=== PATIENT | male | born 1985 | race Caucasian/White ===

== ENCOUNTER 2024-03-11 20:13 | Observation (INO) | payer SELFPAY ==
[2024-03-11] VITALS (32 sets, daily range): BP systolic 123–172; BP diastolic 60–100; PULSE 96–114; RESP 12–21; TEMP 36.6; O2SAT 94–98
[2024-03-11] MEDS: Pantoprazole 40 MG VIAL IVP (20:47)
[2024-03-11 20:50] LABS: Abs Immature Grans 0.03 10^3/uL (0.0-0.06); Absolute Basophil Count 0.05 10^3/uL (0.0-0.2); Absolute Eosinophil Count 0.07 10^3/uL (0.0-0.7); Absolute Lymphocyte Count 1.96 10^3/uL (1.2-3.4); Absolute Monocyte Count 0.82 10^3/uL (0.1-0.8); Absolute Neutrophil Count 5.33 10^3/uL (1.2-6.7); Basophils % 0.6 %; Eosinophils % 0.8 %; HCT 46.4 % (40.0-50.0); HGB 15.8 g/dL (13.5-17.5); Immature Grans % 0.4 %; Lymphocytes % 23.7 %; MCH 33.3 pg (27.0-33.0); MCHC 34.1 % (32.0-36.0); MCV 98 fL (80-95); MPV 8.7 fL (8.0-11.0); Monocytes % 9.9 %; Neutrophils % 64.6 %; Platelet Count 290 10^3/uL (130-400); RBC 4.75 10^6/uL (4.36-5.78); RDW 11.2 % (11.8-14.1); WBC 8.26 10^3/uL (4.4-10.8)
[2024-03-11 21:07] LABS: Lipase 52 U/L (<78)
[2024-03-11 21:10] LABS: ALT 60 U/L (16-63); AST 58 U/L (15-37); Alkaline Phosphatase 88 U/L (46-116); Anion Gap 9.6 mmol/L (3-11); BUN 28 mg/dL (7-18); Bilirubin, Total 0.83 mg/dL (0.2-1.0); CO2 28.4 mmol/L (21.0-32.0); CREATININE 0.8 mg/dL (0.70-1.30); Calcium 8.8 mg/dL (8.5-10.1); Chloride 102 mmol/L (98-107); Glucose 89 mg/dL (74-106); Magnesium 1.8 mg/dL (1.8-2.4); Potassium 3.9 mmol/L (3.5-5.1); Sodium 140 mmol/L (136-145); Total Protein 7.5 g/dL (6.4-8.2)
--- NOTE | 2024-03-11 21:30 | DI.CT_ITS ---
Exam(s) CT ABDOMEN PELVIS CTA EXAM: CT ABDOMEN PELVIS CTA CLINICAL HISTORY: vomiting BRB and tarry stools. TECHNIQUE: Imaging Protocol: Axial computed tomography images with coronal and sagittal reformatted images were created and reviewed CONTRAST MATERIAL: Intravenous: Omnipaque 350 Contrast volume:100 ml Oral: None COMPARISON: No exams were available for comparison FINDINGS: ABDOMEN: There is no evidence of abdominal aortic aneurysm nor dissection.There is no aneurysmal dilatation of the common iliac arteries.The celiac and superior mesenteric arteries are patent.Inferior mesenteric artery also patent. Renal arteries appear unremarkable. No significant stenosis. There is no intraluminal extravasation of injected IV contrast to suggest area of acute hemorrhage. Also no intraluminal contrast evident on the delayed sequence. There is no ascites. LIVER: There is a subcapsular hemangioma in the right lobe which measures approximately 1.7 x 1.8 cm. No other significant focal hepatic findings. GALLBLADDER/BILIARY: No obvious gallbladder pathology. CBD is not dilated. PANCREAS: No evidence of pancreatic mass nor dilatation of the pancreatic duct. SPLEEN: Spleen is not enlarged. There are no intrasplenic lesions. Splenic and portal veins are lee nt. ADRENALS: There are no significant adrenal masses. KIDNEYS: No cysts evident. There is a solitary punctate 1-2 mm calculus in the midpole region of the left kidney, nonobstructive. No other renal findings.. ABDOMINAL AORTA: The abdominal aorta is not enlarged. LYMPH NODES: There is no retroperitoneal nor para-aortic adenopathy. No obvious mesenteric masses. ABDOMINAL WALL: No evidence of significant anterior abdominal wall hernia. GI: There is a possible subtle pancolitis pattern. Difficult to assess without enteric contrast with in the lumen of the large bowel. PELVIS: LYMPH NODES: There is no intrapelvic nor inguinal adenopathy. GI: No evidence of appendicitis.No evidence of sigmoid diverticulitis. URINARY BLADDER: There is mild diffuse thickening of the urinary bladder wall. May be related to cys titis versus under distension. REPRODUCTIVE: Prostate size upper normal. Contains calcification. OSSEOUS: No significant osseous lesions. IMPRESSION: 1. No evidence of active intraluminal extravasation of contrast to suggest source of acute GI bleed 2. Subtle evidence of johns colitis. This may be exaggerated by lack of enteric contrast in the colon lumen. However, given the history here colonoscopy is recommended 3. There is a 1.7 cm subcapsular benign hemangioma in the right hepatic lobe. 4. There is a tiny solitary nonobstructive calculus in the midpole level of the left kidney RADIATION DOSE DELIVERED: 1,138.88mGy.cm Total DLP DATA REPOSITORY: All CT scans at this facility are submitted to the National Radiology Data Registry (NRDR) Dose Index Registry (DIR) with the [employer] (ACR). RADIATION OPTIMIZATION: All CT scans at this facility use at least one of these dose optimization te chniques: automated exposure control; mA and/or kV adjustment per patient size (includes targeted exa ms where dose is matched to clinical indication); or iterative reconstruction.
[2024-03-11] MEDS: Normal Saline - Diluent 50 ML VIAL IJ (21:51)
[2024-03-11] MEDS: Omnipaque 350 MG/ML 100 ML BTL IJ (21:52)
[2024-03-11] MEDS: Normal Saline Flush 10 ML SYR IVP (21:53)
[2024-03-11 22:24] LABS: Abs Immature Grans 0.03 10^3/uL (0.0-0.06); Absolute Basophil Count 0.04 10^3/uL (0.0-0.2); Absolute Eosinophil Count 0.06 10^3/uL (0.0-0.7); Absolute Lymphocyte Count 1.69 10^3/uL (1.2-3.4); Absolute Monocyte Count 0.73 10^3/uL (0.1-0.8); Absolute Neutrophil Count 4.93 10^3/uL (1.2-6.7); Basophils % 0.5 %; Eosinophils % 0.8 %; HCT 41.8 % (40.0-50.0); HGB 14.2 g/dL (13.5-17.5); Immature Grans % 0.4 %; Lymphocytes % 22.6 %; MCH 33.3 pg (27.0-33.0); MCV 98 fL (80-95); MPV 8.5 fL (8.0-11.0); Monocytes % 9.8 %; Neutrophils % 65.9 %; Platelet Count 245 10^3/uL (130-400); RBC 4.27 10^6/uL (4.36-5.78); RDW 11.4 % (11.8-14.1); RDW-SD 41.1 fL; WBC 7.48 10^3/uL (4.4-10.8)
[2024-03-11 22:29] LABS: Prothrombin Time 9.9 sec (9.1-11.1)
--- NOTE | 2024-03-11 23:25 | DI.VRAD_ITS ---
PROCEDURE INFORMATION: Exam: CTA Abdomen and Pelvis With Contrast Exam date and time: 03/11/2024 9:56 PM Age: 39 years old Clinical indication: Other: Vomiting brb and tarry stools TECHNIQUE: Imaging protocol: Computed tomographic angiography of the abdomen and pelvis with contrast. Exam focused on the arteries. 3D rendering (Not supervised by radiologist): MIP and/or 3D reconstructed images were created by the technologist. Contrast material: OMNI 350; Contrast volume: 100 ml; Contrast route: INTRAVENOUS (IV); COMPARISON: No relevant prior studies available. FINDINGS: Diaphragm: There is a small hiatal hernia. Aorta: No aortic aneurysm. No aortic dissection. Celiac trunk and mesenteric arteries: No occlusion or significant stenosis. Renal arteries: No occlusion or significant stenosis. Right iliac arteries: No occlusion or significant stenosis. Left iliac arteries: No occlusion or significant stenosis. Liver: There is a rounded hypoattenuating lesion within the right hepatic lobe measuring 1.3 cm. There is evidence of peripheral, discontinuous nodular enhancement, suggestive of a benign hemangioma. Gallbladder and biliary ducts: Unremarkable. No calcified stones. No ductal dilation. Pancreas: Unremarkable. No mass. No ductal dilation. Spleen: Unremarkable. No splenomegaly. Adrenal glands: Unremarkable. No mass. Kidneys and ureters: Nonobstructive nephrolithiasis on the left. Stomach and bowel: There is evidence of bowel wall thickening involving the ascending colon, distal transverse colon, descending colon, sigmoid colon and rectum. Findings are concerning for colitis/proctitis. Appendix: No evidence of appendicitis. Intraperitoneal space: Unremarkable. No free air. No significant fluid collection. Lymph nodes: Unremarkable. No enlarged lymph nodes. Urinary bladder: Unremarkable. No mass. Reproductive: Prostatic calcifications. Bones/joints: No acute fracture. Soft tissues: Unremarkable. IMPRESSION: 1. No active extravasation of contrast is identified to suggest source of GI bleed. 2. There is evidence of bowel wall thickening involving the ascending colon, distal transverse colon, descending colon, sigmoid colon and rectum. Findings are concerning for colitis/proctitis. 3. There is a rounded hypoattenuating lesion within the right hepatic lobe measuring 1.3 cm. There is evidence of peripheral, discontinuous nodular enhancement, suggestive of a benign hemangioma. 4. Nonobstructive nephrolithiasis on the left. Dictated and Authenticated by: Kai Sharma MD. Ordering:YONY Desai MD
--- NOTE | 2024-03-11 23:53 | W.ED.GENAD ---
Discharge Plan Disposition Patient Disposition: Admit to [facility] Condition: Serious Discharge Details Clinical Impression: Acute GI bleeding Primary Care Provider: None,None ED Provider: Giselle Menchaca Home Meds and New Rx's Prescriptions: No Action No Known Home Meds HPI General Date/Time Provider Initiated Documentation: 03/11/24 20:15. HPI Narrative: This 39-year-old male presents with report of vomiting bright red blood spontaneously after having some nausea. Denies any chest pain or shortness of breath. History of alcoholism, drinks approximately 12 drinks a day. Denies any history of alcohol withdrawal and did not have any drinks last week as he was ill and did not have alcohol withdrawal. He was concerned because after the vomiting blood he had 2 episodes of tarry stools. He denies any associated discomfort. He specifically denies any epigastric pain. Denies any fever or chills. He denies any chest pain or shortness of breath. He denies any additional illicit drug use does not have a doctor. Denies any current nausea last drink was earlier today. Related Data Home Medications ?Medication ?Instructions ?Recorded ?Confirmed Unknown [No Known Home Meds] 03/11/24 03/11/24 Allergies Allergy/AdvReac Type Severity Reaction Status Date / Time No Known Allergies Allergy Unverified 03/11/24 20:19 General Stated Complaint: GI Bleed DIANE: 3 Exam Narrative Exam Narrative: Alert and oriented 39-year-old male in no acute distress and clinically sober, oropharynx patent, uvula midline, no visible blood, pupils equal round reactive to light and accommodation, nontender abdominal exam, no pallor, alert and oriented x 4, no peripheral edema, dark stool, guaiac positive Course Vital Signs Vital signs: Vital Signs Temperature 36.6 C 03/11/24 20:15 Pulse 109 H 03/11/24 20:15 Respiratory Rate 18 03/11/24 20:15 Blood Pressure 155/100 H 03/11/24 20:15 Pulse Oximetry 98 03/11/24 20:15 Temperature 36.6 C 03/11/24 20:15 Temperature Source Oral 03/11/24 20:15 Pulse 98 H 03/11/24 22:12 Pulse 100 H 03/11/24 22:50 Respiratory Rate 13 03/11/24 22:50 Blood Pressure 126/60 03/11/24 21:47 Blood Pressure Mean 74 03/11/24 22:12 Blood Pressure Position Sitting 03/11/24 20:15 Pulse Oximetry 98 03/11/24 22:50 Oxygen Delivery Method Room Air 03/11/24 20:15 Oxygen Flow Rate 0 03/11/24 20:15 Pain Level 0 03/11/24 20:15 Lab/Test Results Lab/Test Results: Laboratory Tests Range/Units 03/11/24 03/11/24 20:28 22:15 WBC (4.4-10.8) 10^3/uL 8.26 7.48 RBC (4.36-5.78) 10^6/uL 4.75 4.27 L Hgb (13.5-17.5) g/dL 15.8 14.2 Hct (40.0-50.0) % 46.4 41.8 MCV (80-95) fL 98 H 98 H MCH (27.0-33.0) pg 33.3 H 33.3 H MCHC (32.0-36.0) % 34.1 34.0 RDW (11.8-14.1) % 11.2 L 11.4 L Plt Count (130-400) 10^3/uL 290 245 MPV (8.0-11.0) fL 8.7 8.5 Immature Gran % % 0.4 0.4 Neutrophils % % 64.6 65.9 Lymphocytes % % 23.7 22.6 Monocytes % % 9.9 9.8 Eosinophils % % 0.8 0.8 Basophils % % 0.6 0.5 Nucleated RBC % (0.0-0.3) % 0.0 0.0 Absolute Neutrophils (1.2-6.7) 10^3/uL 5.33 4.93 Absolute Lymphocytes (1.2-3.4) 10^3/uL 1.96 1.69 Absolute Monocytes (0.1-0.8) 10^3/uL 0.82 H 0.73 Absolute Eosinophils (0.0-0.7) 10^3/uL 0.07 0.06 Absolute Basophils (0.0-0.2) 10^3/uL 0.05 0.04 PT (9.1-11.1) sec 9.9 INR (0.9-1.1) 1.0 Sodium (136-145) mmol/L 140 Potassium (3.5-5.1) mmol/L 3.9 Chloride (98-107) mmol/L 102 Carbon Dioxide (21.0-32.0) mmol/L 28.4 Anion Gap (3-11) mmol/L 9.6 BUN (7-18) mg/dL 28 H Creatinine (0.70-1.30) mg/dL 0.8 Est GFR (CKD-EPI 2020) (mL/min/1.73m2) 116.90 Glucose (74-106) mg/dL 89 Calcium (8.5-10.1) mg/dL 8.8 Magnesium (1.8-2.4) mg/dL 1.8 Total Bilirubin (0.2-1.0) mg/dL 0.83 AST (15-37) U/L 58 H ALT (16-63) U/L 60 Alkaline Phosphatase (46-116) U/L 88 Total Protein (6.4-8.2) g/dL 7.5 Albumin (3.4-5.0) g/dL 4.0 Lipase (<78) U/L 52 ABO/Rh A Positive Blood Type Recheck A Positive Antibody Screen NEGATIVE Medical Decision Making This is a 39-year-old male presenting with suspected upper GI bleed in the presence of history of alcoholism chronically. There is been no additional episode of hematemesis in the emergency department, however patient did have 2 episodes of melena with approximately 200 to 300 cc of blood in the emergency department. His hemoglobin dropped from 15.8-14.2 and BUN is elevated at 28. CTA abdomen and pelvis was ordered, there is a hemangioma but no other additional evidence of bleeding. Patient was given Protonix 40 on arrival and Protonix drip at 80 mg IV was started. I did consider varices however no visible varices on CTA. Patient does consume alcohol approximately 12 drinks daily, he denies any history of alcohol withdrawal however he will need his CIWA placed. He will need hourly checks his score is 0 at this time. He has remained hemodynamically stable, just mild tachycardia in the emergency department. Repeat CBC was ordered for 2 AM. Case was discussed with Dr. Sarkar and she is agreeable to admission of this patient at this time. Patient has not required blood transfusion at this time. Telemetry monitoring continued. Likely endoscopy in the morning. Quality:[facility] Related Social Needs: No Data to Display PFSH All Active Problems (Updated 03/11/24 @ 23:57 by MELVA Geller) Acute GI bleeding (Acute) Social History Smoking/Tobacco Use Status: Current every day Smoking risk assessment performed?: Yes Alcohol Intake: current Alcohol Intake frequency: 3 or more drinks per day Alcohol type: beer and hard liquor Drug use: Never Substance use type: does not use Do you feel safe at home: Yes Do you feel safe in your relationship?: Yes PAWSS Have you Been Recently Intoxicated or Drunk Within the Last 30 days?: Yes Have you Ever Experienced Previous Episodes of Alcohol Withdrawal?: No Have you ever Experienced Withdrawal Seizures?: No Have you ever Experienced Delirium Tremens(DT)s?: No Have you ever undergone Alcohol Rehabilitation Treatment (i.e, inpt ot outpatient treatment programs)?: Yes Have you ever Experienced Blackouts?: No Have you ever Combined Alcohol with other Downers within the last 90 days?: No Have you ever Combined Alcohol with any other Substance of Abuse during the last 90 days?: No Positive Blood Alcohol level on Presentation? [PCS.BAL]: No Evidence of Increased Autonomic Activity (i.e. HR>120, tremor, sweating, agitation, nausea)?: No Result: 2
[2024-03-12] VITALS (66 sets, daily range): BP systolic 105–139; BP diastolic 65–96; PULSE 64–118; RESP 14–24; TEMP 36.2–37.1; O2SAT 95–100; BMI 23.9
[2024-03-12] MEDS: PANTOPRAZOLE 80 MG in Normal Saline 100 ML 10 MG IV (00:04)
[2024-03-12] MEDS: Ondansetron 4 MG/2 ML VIAL IVP (00:06)
[2024-03-12 02:17] LABS: Abs Immature Grans 0.01 10^3/uL (0.0-0.06); Absolute Basophil Count 0.03 10^3/uL (0.0-0.2); Absolute Eosinophil Count 0.05 10^3/uL (0.0-0.7); Absolute Lymphocyte Count 1.82 10^3/uL (1.2-3.4); Absolute Monocyte Count 0.63 10^3/uL (0.1-0.8); Absolute Neutrophil Count 4.67 10^3/uL (1.2-6.7); Basophils % 0.4 %; Eosinophils % 0.7 %; HCT 41.5 % (40.0-50.0); HGB 14.3 g/dL (13.5-17.5); Immature Grans % 0.1 %; Lymphocytes % 25.2 %; MCH 33.6 pg (27.0-33.0); MCHC 34.5 % (32.0-36.0); MCV 97 fL (80-95); MPV 8.6 fL (8.0-11.0); Monocytes % 8.7 %; Neutrophils % 64.9 %; Platelet Count 258 10^3/uL (130-400); RBC 4.26 10^6/uL (4.36-5.78); RDW 11.4 % (11.8-14.1); RDW-SD 40.8 fL; WBC 7.21 10^3/uL (4.4-10.8)
--- NOTE | 2024-03-12 03:56 | W.PC.ACHO ---
Registration Status: Primary Language: Preferred Language: ED Information & Data Chief Complaint GI Bleed 03/11/24 23:57 Triage Note Pt had one episode of 03/11/24 20:15 vomiting bright red blood at approx 1600 after work. Then went home, had 1 episode of black tarry stool 30min [employer]. Denies pain. Drinks beer, liquor, approx 12pack a day. Most Recent Vital Signs Temperature 36.7 C 03/12/24 02:24 Temperature Source Temporal Artery Scan 03/12/24 02:24 Pulse 87 03/12/24 02:24 Pulse 99 H 03/12/24 00:20 Respiratory Rate 18 03/12/24 02:24 Respiratory Effort Normal 03/12/24 00:46 Respiratory Depth Normal 03/12/24 00:46 Respiratory Pattern Normal 03/12/24 00:46 Blood Pressure 112/82 03/12/24 02:24 Blood Pressure Mean 119 03/12/24 00:16 Blood Pressure Position Sitting 03/11/24 20:15 Pulse Oximetry 98 03/12/24 02:24 Oxygen Delivery Method Room Air 03/12/24 02:24 Oxygen Flow Rate 0 03/12/24 02:24 Pain Level 0 03/12/24 00:46 Allergies No Known Allergies Allergy (Unverified 03/11/24 20:19) Precautions Isolation Standard precaution 03/11/24 20:18 Active Medications Generic Name Dose Route Start Last Admin Trade Name Freq PRN Reason Stop Dose Admin Pantoprazole Sodium 80 mg/ 100 mls @ 10 mls/hr 03/11/24 23:45 03/12/24 00:04 Sodium Chloride IV 10 mls/hr INFUSION JADA Administration Iohexol 100 ml 03/11/24 22:00 03/11/24 21:52 Omnipaque 350 Mg/Ml 100 Ml Btl IJ 04/10/24 23:59 100 ml DIRECTED JADA Administration Sodium Chloride 0 ml 03/11/24 20:41 03/11/24 21:53 Normal Saline Flush 10 Ml Syr IVP 10 ml PRN PRN Administration Sodium Chloride 50 ml 03/11/24 22:00 03/11/24 21:51 Normal Saline - Diluent 50 Ml Vial IJ 50 ml .FOR DI USE JADA Administration IV IV Catheter Type [Left Saline Lock Antecubital] IV Catheter Type [Right Saline Lock Antecubital] IV Catheter Gauge [Left 18 Antecubital] IV Catheter Gauge [Right 18 Antecubital] Diet Orders Category Date Time Status Nothing Per Oral [DIET] Nutrition 03/12/24 Breakfast Active Diagnostics 03/12/24 03/12/24 03/11/24 Range/Units 06:00 02:00 22:15 WBC Pending 7.21 7.48 (4.4-10.8) 10^3/uL RBC Pending 4.26 L 4.27 L (4.36-5.78) 10^6/uL Hgb Pending 14.3 14.2 (13.5-17.5) g/dL Hct Pending 41.5 41.8 (40.0-50.0) % MCV Pending 97 H 98 H (80-95) fL MCH Pending 33.6 H 33.3 H (27.0-33.0) pg MCHC Pending 34.5 34.0 (32.0-36.0) % RDW Pending 11.4 L 11.4 L (11.8-14.1) % Plt Count Pending 258 245 (130-400) 10^3/uL MPV Pending 8.6 8.5 (8.0-11.0) fL Immature Gran % 0.1 0.4 % Neutrophils % 64.9 65.9 % Lymphocytes % 25.2 22.6 % Monocytes % 8.7 9.8 % Eosinophils % 0.7 0.8 % Basophils % 0.4 0.5 % Nucleated RBC % 0.0 0.0 (0.0-0.3) % Absolute Neutrophils 4.67 4.93 (1.2-6.7) 10^3/uL Absolute Lymphocytes 1.82 1.69 (1.2-3.4) 10^3/uL Absolute Monocytes 0.63 0.73 (0.1-0.8) 10^3/uL Absolute Eosinophils 0.05 0.06 (0.0-0.7) 10^3/uL Absolute Basophils 0.03 0.04 (0.0-0.2) 10^3/uL PT 9.9 (9.1-11.1) sec INR 1.0 (0.9-1.1) Sodium (136-145) mmol/L Potassium (3.5-5.1) mmol/L Chloride (98-107) mmol/L Carbon Dioxide (21.0-32.0) mmol/L Anion Gap (3-11) mmol/L BUN (7-18) mg/dL Creatinine (0.70-1.30) mg/dL Est GFR (CKD-EPI 2020) (mL/min/1.73m2) Glucose (74-106) mg/dL Calcium (8.5-10.1) mg/dL Magnesium (1.8-2.4) mg/dL Total Bilirubin (0.2-1.0) mg/dL AST (15-37) U/L ALT (16-63) U/L Alkaline Phosphatase (46-116) U/L Total Protein (6.4-8.2) g/dL Albumin (3.4-5.0) g/dL Lipase (<78) U/L ABO/Rh Blood Type Recheck A Positive Antibody Screen 03/11/24 Range/Units 20:28 WBC 8.26 (4.4-10.8) 10^3/uL RBC 4.75 (4.36-5.78) 10^6/uL Hgb 15.8 (13.5-17.5) g/dL Hct 46.4 (40.0-50.0) % MCV 98 H (80-95) fL MCH 33.3 H (27.0-33.0) pg MCHC 34.1 (32.0-36.0) % RDW 11.2 L (11.8-14.1) % Plt Count 290 (130-400) 10^3/uL MPV 8.7 (8.0-11.0) fL Immature Gran % 0.4 % Neutrophils % 64.6 % Lymphocytes % 23.7 % Monocytes % 9.9 % Eosinophils % 0.8 % Basophils % 0.6 % Nucleated RBC % 0.0 (0.0-0.3) % Absolute Neutrophils 5.33 (1.2-6.7) 10^3/uL Absolute Lymphocytes 1.96 (1.2-3.4) 10^3/uL Absolute Monocytes 0.82 H (0.1-0.8) 10^3/uL Absolute Eosinophils 0.07 (0.0-0.7) 10^3/uL Absolute Basophils 0.05 (0.0-0.2) 10^3/uL PT (9.1-11.1) sec INR (0.9-1.1) Sodium 140 (136-145) mmol/L Potassium 3.9 (3.5-5.1) mmol/L Chloride 102 (98-107) mmol/L Carbon Dioxide 28.4 (21.0-32.0) mmol/L Anion Gap 9.6 (3-11) mmol/L BUN 28 H (7-18) mg/dL Creatinine 0.8 (0.70-1.30) mg/dL Est GFR (CKD-EPI 2020) 116.90 (mL/min/1.73m2) Glucose 89 (74-106) mg/dL Calcium 8.8 (8.5-10.1) mg/dL Magnesium 1.8 (1.8-2.4) mg/dL Total Bilirubin 0.83 (0.2-1.0) mg/dL AST 58 H (15-37) U/L ALT 60 (16-63) U/L Alkaline Phosphatase 88 (46-116) U/L Total Protein 7.5 (6.4-8.2) g/dL Albumin 4.0 (3.4-5.0) g/dL Lipase 52 (<78) U/L ABO/Rh A Positive Blood Type Recheck Antibody Screen NEGATIVE Intake and Output - 24 Hour Total 03/11/24 20:13 thru 03/12/24 01:15 Intake Total 20 Output Total 500 Balance -480 Weight 75.568 kg Intake: IV 20 Output: Urine 300 Stool 200 Other: Urine Color Yellow Urine Appearance Clear Urine Odor Normal Emesis Description Bright Red Blood # Voids 1 # Bowel Movements 1 Falls Risk Assessment History of Falls No History 03/12/24 00:46 Contributing Factors No Factors 03/12/24 00:46 Ambulatory Aids Independent 03/12/24 00:46 Tubes/Lines W/no contributing factors 03/12/24 00:46 Gait Evaluation No gait disturbance 03/12/24 00:46 Cognition No cognitive impairment 03/12/24 00:46 Fall Total Score 10 03/12/24 00:46 Level of Risk Standard/Low Risk 03/12/24 00:46 v v v v v v v v v Sending and/or Receiving Nurses: Please use comment section below to note any information pertinent to the patient hand-off not included above. Information / Comments: Active GI bleed, liquid black stool, no evidence of varices on CT. Scoring 1 on CIWAs, last drink was this AM did not drink at all last week due to respiratory illness. H + H 15 down to 14 in 1.5 hours. CBCs at 0200 and 0600. GOing for scope in AM. Bilat 18g. A+O, Ind. 2 instances of black tarry stool in ED no vomiting in ED. Bright red blood at home showed picture. Protonix drip started and IVP protonix given in ED. Pale and dizzy when ambulates. HR 99, O2 96% on RA, BP 139/83 Report received from: Prasanna called at [id number]
[2024-03-12 06:29] LABS: HCT 41.3 % (40.0-50.0); MCH 33.2 pg (27.0-33.0); MCHC 33.9 % (32.0-36.0); MCV 98 fL (80-95); MPV 8.6 fL (8.0-11.0); Platelet Count 254 10^3/uL (130-400); RBC 4.22 10^6/uL (4.36-5.78); RDW 11.4 % (11.8-14.1); RDW-SD 41.1 fL; WBC 5.28 10^3/uL (4.4-10.8)
--- NOTE | 2024-03-12 07:41 | W.PM.HP.N ---
Date of service: 03/12/24 Time of Service: 07:41 Assessment and Plan Assessment and plan (1) Acute GI bleeding: Status: Acute Assessment and plan: Informed consent is obtained for the procedural (explained in simple layman's terms that the pt. and/or family could understand) explaining risks vs benefits and alternatives to the procedure and consequences if we do not do the procedure and need/rational for the procedure. Risks include but are not limited to: bleeding, infection, perforation of esophagus, stomach, colon, small intestines, bronchus or trachea, or PTX. This would necessitate emergency surgery to repair the damage w/ possible ostomy; and other associated complications w/ the required surgery. Also complications of anesthesia including aspiration, AL/CVA/. -PPI egd today recommend ETOH cessation hgb stable over night CT IMPRESSION: 1. No active extravasation of contrast is identified to suggest source of GI bleed. 2. There is evidence of bowel wall thickening involving the ascending colon, distal transverse colon, descending colon, sigmoid colon and rectum. Findings are concerning for colitis/proctitis. 3. There is a rounded hypoattenuating lesion within the right hepatic lobe measuring 1.3 cm. There is evidence of peripheral, discontinuous nodular enhancement, suggestive of a benign hemangioma. 4. Nonobstructive nephrolithiasis on the left. (2) ETOH abuse: Status: Chronic History of Present Illness Narrative: Pt came to the ED last pm c/o vomiting BRB. He had x2 episodes of vomiting w/ blood in the vomtitus. He than had a black tarry stool. He denies any abdominal pain or nausea today. He has never had anything like this before. No hx of ulcers or gastric problems. He drinks today for a long periods of time. Can get some gerd s/s after drinking or lying down. denies any seizures or vomiting blood or complications w/etoh use. No signs of w/ drawl CIWA- 0 denies any medical problems- no AL/CVA. no DM. No asthma PSHX- wisdom teeth only no problems w/ anesthesia Review of Systems All systems reviewed & are unremarkable except as noted in HPI and below PFSH All Active Problems ETOH abuse (Chronic) Acute GI bleeding (Acute) Social History Smoking/Tobacco Use Status: Current every day Smoking risk assessment performed?: Yes Alcohol Intake: current Alcohol Intake frequency: 3 or more drinks per day Alcohol type: beer and hard liquor Drug use: Never Substance use type: does not use Housing: apartment Do you feel safe at home: Yes Do you feel safe in your relationship?: Yes Meds Allergies and Home Medications Allergies Allergy/AdvReac Type Severity Reaction Status Date / Time No Known Allergies Allergy Unverified 03/11/24 20:19 Home Medications ?Medication ?Instructions ?Recorded ?Confirmed ?Type Unknown [No Known Home Meds] 03/11/24 03/11/24 History Exam Narrative Exam Narrative: PHYSICAL EXAM GENERAL APPEARANCE: Alert, healthy appearance, oriented, x 3,? in no acute distress HYDRATION: Well hydrated HEAD, EYES, EARS, NECK, THROAT: Head is normocephalic, pupils equal, round, reactive to light and accommodation, ocular movement intact, sclera clear and no jaundice. ?Dentition intact. LUNGS: normal respiration/normal chest excursion. ?Clear to auscultation bilaterally. ?No wheeze. ?HEART: Regular rate and rhythm. no murmurs EXTREMITY: No edema or cyanosis.? no leg pain, redness, swelling.? ABDOMEN: soft and non-tender to palpation.? Normal bowel sounds.? Results Labs 03/12/24 06:17 03/11/24 20:28 Labs: Laboratory Results - last 24 hr 03/11/24 03/11/24 03/12/24 20:28 22:15 02:00 WBC 8.26 7.48 7.21 RBC 4.75 4.27 L 4.26 L Hgb 15.8 14.2 14.3 Hct 46.4 41.8 41.5 MCV 98 H 98 H 97 H MCH 33.3 H 33.3 H 33.6 H MCHC 34.1 34.0 34.5 RDW 11.2 L 11.4 L 11.4 L Plt Count 290 245 258 MPV 8.7 8.5 8.6 Immature Gran % 0.4 0.4 0.1 Neutrophils % 64.6 65.9 64.9 Lymphocytes % 23.7 22.6 25.2 Monocytes % 9.9 9.8 8.7 Eosinophils % 0.8 0.8 0.7 Basophils % 0.6 0.5 0.4 Nucleated RBC % 0.0 0.0 0.0 Absolute Neutrophils 5.33 4.93 4.67 Absolute Lymphocytes 1.96 1.69 1.82 Absolute Monocytes 0.82 H 0.73 0.63 Absolute Eosinophils 0.07 0.06 0.05 Absolute Basophils 0.05 0.04 0.03 PT 9.9 INR 1.0 Sodium 140 Potassium 3.9 Chloride 102 Carbon Dioxide 28.4 Anion Gap 9.6 BUN 28 H Creatinine 0.8 Est GFR (CKD-EPI 2020) 116.90 Glucose 89 Calcium 8.8 Magnesium 1.8 Total Bilirubin 0.83 AST 58 H ALT 60 Alkaline Phosphatase 88 Total Protein 7.5 Albumin 4.0 Lipase 52 ABO/Rh A Positive Blood Type Recheck A Positive Antibody Screen NEGATIVE 03/12/24 06:17 WBC 5.28 RBC 4.22 L Hgb 14.0 Hct 41.3 MCV 98 H MCH 33.2 H MCHC 33.9 RDW 11.4 L Plt Count 254 MPV 8.6 Immature Gran % Neutrophils % Lymphocytes % Monocytes % Eosinophils % Basophils % Nucleated RBC % Absolute Neutrophils Absolute Lymphocytes Absolute Monocytes Absolute Eosinophils Absolute Basophils PT INR Sodium Potassium Chloride Carbon Dioxide Anion Gap BUN Creatinine Est GFR (CKD-EPI 2020) Glucose Calcium Magnesium Total Bilirubin AST ALT Alkaline Phosphatase Total Protein Albumin Lipase ABO/Rh Blood Type Recheck Antibody Screen Last Vital Signs Temp 36.8 C 03/12/24 04:55 Pulse 86 03/12/24 04:55 Resp 16 03/12/24 04:55 BP 115/71 03/12/24 04:55 Pulse Ox 99 03/12/24 04:55 PAWSS Have you Been Recently Intoxicated or Drunk Within the Last 30 days?: Yes Have you Ever Experienced Previous Episodes of Alcohol Withdrawal?: No Have you ever Experienced Withdrawal Seizures?: No Have you ever Experienced Delirium Tremens(DT)s?: No Have you ever undergone Alcohol Rehabilitation Treatment (i.e, inpt ot outpatient treatment programs)?: No Have you ever Experienced Blackouts?: No Have you ever Combined Alcohol with other Downers within the last 90 days?: No Have you ever Combined Alcohol with any other Substance of Abuse during the last 90 days?: No Positive Blood Alcohol level on Presentation? [PCS.BAL]: No Evidence of Increased Autonomic Activity (i.e. HR>120, tremor, sweating, agitation, nausea)?: No Result: 1 Time Spent Time spent with Patient: 40-54 minutes Time was spent: preparing to see the patient(eg.review tests), obtaining and/or reviewing separately otained hiistory, ordering medications,tests, procedures, referring, communicating with other health transitional care liaison, indepentently interpreting results, counseling the patient, care coordination and other
--- NOTE | 2024-03-12 07:56 | ANES.PREOP_ITS ---
General Info Date of Service Date Performed: 03/12/24 Height: 5 ft 10 in Weight: 75.568 kg Body Mass Index (BMI): 23.9 Surgical Procedure: Operation Date: 03/12/24 08:05 Proposed Procedure Side Surgeon p Gastroscopy Monique Sarkar, DO Meds Allergies and Home Medications Allergies Allergy/AdvReac Type Severity Reaction Status Date / Time No Known Allergies Allergy Unverified 03/11/24 20:19 Home Medication ?Medication ?Instructions ?Recorded Unknown [No Known Home Meds] 03/11/24 Current Visit Medications: Current Medications Generic Name Dose Route Start Last Admin Trade Name Freq PRN Reason Stop Dose Admin Pantoprazole Sodium 80 mg/ 100 mls @ 10 mls/hr 03/11/24 23:45 03/12/24 00:04 Sodium Chloride IV 10 mls/hr INFUSION JADA Administration IV Miscellaneous Supplies 1 each 03/11/24 20:45 Iv Access-Emergency Dept IV DIRECTED JADA Iohexol 100 ml 03/11/24 22:00 03/11/24 21:52 Omnipaque 350 Mg/Ml 100 Ml Btl IJ 04/10/24 23:59 100 ml DIRECTED JADA Administration Sodium Chloride 0 ml 03/11/24 20:41 03/11/24 21:53 Normal Saline Flush 10 Ml Syr IVP 10 ml PRN PRN Administration Sodium Chloride 0 ml 03/12/24 08:30 03/12/24 07:44 Normal Saline Flush 10 Ml Syr IVP Not Given BID JADA Sodium Chloride 0 ml 03/11/24 20:41 Normal Saline 10 Ml Vial IJ DIRECTED PRN Sodium Chloride 50 ml 03/11/24 22:00 03/11/24 21:51 Normal Saline - Diluent 50 Ml Vial IJ 50 ml .FOR DI USE JADA Administration PFSH Active Problems Active Problems: Problem Status Onset Code ETOH abuse Chronic F10.10 Acute GI bleeding Acute K92.2 Tobacco Smoking/Tobacco Use Status: Current every day Alcohol Alcohol Intake: current Alcohol intake frequency: 3 or more drinks per day Alcohol type: beer and hard liquor Substance Use Substance use: Never Substance use type: does not use Vital Signs and Lab Results Vital Signs Most Recent Vital Signs in EMR: Most Recent Vital Signs Temp Pulse Resp BP Pulse Ox 36.8 C 86 16 115/71 99 03/12/24 04:55 03/12/24 04:55 03/12/24 04:55 03/12/24 04:55 03/12/24 04:55 Lab Results 03/12/24 06:17 03/11/24 20:28 Blood Type / Crossmatch: 2 Antibody Screen NEGATIVE 03/11/24 Complete Blood Count: 2 White Blood Count 5.28 10^3/uL (4.4-10.8) 03/12/24 06:17 Red Blood Count 4.22 10^6/uL (4.36-5.78) L 03/12/24 06:17 Hemoglobin 14.0 g/dL (13.5-17.5) 03/12/24 06:17 Hematocrit 41.3 % (40.0-50.0) 03/12/24 06:17 Platelet Count 254 10^3/uL (130-400) 03/12/24 06:17 Complete Metabolic Panel: 2 Sodium 140 mmol/L (136-145) 03/11/24 20:28 Potassium 3.9 mmol/L (3.5-5.1) 03/11/24 20:28 Chloride 102 mmol/L (98-107) 03/11/24 20:28 Carbon Dioxide 28.4 mmol/L (21.0-32.0) 03/11/24 20:28 BUN 28 mg/dL (7-18) H 03/11/24 20:28 Creatinine 0.8 mg/dL (0.70-1.30) 03/11/24 20:28 Est GFR (CKD-EPI 2020) 116.90 (mL/min/1.73m2) 03/11/24 20:28 Magnesium 1.8 mg/dL (1.8-2.4) 03/11/24 20:28 Calcium 8.8 mg/dL (8.5-10.1) 03/11/24 20:28 Albumin 4.0 g/dL (3.4-5.0) 03/11/24 20:28 Glucose 89 mg/dL (74-106) 03/11/24 20:28 Liver Function Panel: 2 Alanine Aminotransferase (ALT/SGPT) 60 U/L (16-63) 03/11/24 20: 28 Aspartate Amino Transf (AST/SGOT) 58 U/L (15-37) H 03/11/24 20: 28 Coagulation Panel: 2 INR International Normalized Ratio 1.0 (0.9-1.1) 03/11/24 22:1 5 Prothrombin Time 9.9 sec (9.1-11.1) 03/11/24 22:15 Cardiac Panel: 2 No Data to Display Arterial Blood Gas: 2 No Data to Display Venous Blood Gas: 2 No Data to Display Pancreas Panel: 2 Lipase 52 U/L (<78) 03/11/24 20:28 Thyroid Panel: 2 No Data to Display Infectious Disease: 2 No Data to Display Blood Cultures: 2 No Data to Display Toxicology Panel: 2 No Data to Display Anesthesia Assessment and Plan Anesthesia History Personal History: No History of Anesthesia Complications Family History: No Family History of Anesthesia Complications Exercise Tolerance Exercise Tolerance: Metabolic Equivalents>4 Pertinent Negatives Pertinent Negatives: No Symptoms of GERD, No Major Cardiovascular Symptoms or Complaints, No Major Pulmonary Symptoms or Complaints and No History of CVA/TIA Cardiac & Pulmonary Exam Cardiac Exam: Normal S1/S2 Heart Sounds Pulmonary Exam: Clear Bilateral Breath Sounds Implantable Cardiac Device Does patient have a Pacemaker or an ICD?: No Airway Exam Known Difficult Airway: No Mallampati Class: 2 Mouth Opening: Normal (> 3cm) Thyromental Distance: Greater than 3 cm Facial Hair: Full Olivo Neck Range of Motion: Full ROM Neck Circumference: Normal Teeth Condition: Normal Dentition and Loose or Chipped (two front incisors) ASA Classification ASA Score: ASA 2 Emergency Case?: No NPO Status NPO Status: NPO Clears >2 hours, Solids >8 hours Anesthesia Plan Resuscitation Status: Full Code Anesthesia Technique: General Anesthesia Airway Planned: Natural Airway Monitors Used: Standard Monitors
[2024-03-12] MEDS: Lactated Ringers 1,000 ML 30 ML IV (08:00)
--- NOTE | 2024-03-12 08:15 | STOM_PTH ---
PATIENT: Manuel Grace LOC: [facility]#:[id number] AGE/SX: 39/M ROOM: RE03/11/[address]: Monique Sarkar : 1985 BED: A DIS: 03/12/2024 SPEC #: [id number] RECD: 03/12/24 12:32 STATUS: NANCY REGretel #: [id number] LAURA: 03/12/24 08:[address]: Monique Sarkar DEPT: Surgical Specimen RECD BY: Giselle Moeller ENTERED: 03/12/24 12:32 SP TYPE: STOMACH OTHR DR: None Tissues: 1 - BIOPSY BOWEL 2 - STOMACH BIOPSY 3 - STOMACH BIOPSY 4 - ESOPHAGUS BIOPSY 5 - ESOPHAGUS BIOPSY Procedures: GROSS AND MICRO LEVEL 4 SPECIAL STAIN 1 Comments: [id number]
--- NOTE | 2024-03-12 08:23 | W.PM.ENDDOP ---
Date of service: 03/12/24 Time of Service: 08:23 Endoscopy Report DATE OF PROCEDURE: 03/12/24 PRE-OP DIAGNOSIS: gi bleed POST-OP DIAGNOSIS: other (gastritis/esophagitis ) SURGEON: Monique Sarkar ANESTHESIA TYPE: General:No Airway ESTIMATED BLOOD LOSS: 3 PATHOLOGY: other COMPLICATIONS: None DISPOSITION: PACU PROCEDURE DESCRIPTION: Informed consent was obtained from the pt; explaining the benefits and Risks: bleeding, infections, perforations {which could require surgery or antibiotics and prolonged hospital stay}, or ostomy, and complications of anaesthesia, amy aspiration). The patient was take to the procedure room and placed in a supine position. Monitors were applied and a time out was done. The patients name, date of , procedure type, allergies to medications and metal in their body was reviewed. A bite block was placed and the patient was sedated. Once sedated and comfortable an Olympus gastroscope (see RN notes for scope #) was advanced through the oropharynx which was grossly normal, and passed into the esophagus. The proximal and mid-esophagus were normal. The distal esophagus does not show any: dilation/strictures/varices or ulcers/bleeding noted. He has LA grade A esophagitis. There were no tear suggestive of Borhaves. The scope was advanced into the stomach and through the pylorus into the duodenum. The duodenum was noted to be normal . Biopsies were done of the duodenal bulb.. The scope was retracted back into the stomach and biopsies were taken of the antrum. There is old blood noted in the stomach. there is striped gastritis radaiating from the antrum. No active bleeding. There were no portal gastropathy/ ulcers/masses noted. The scope was retroflexed. The cardia and fundus were noted to be normal. There is no hiatal hernia noted. The scope was retracted back into the esophagus and biopsies were done of the GE junction (in all 4 quadrants) and distal esophagus (2cm above the GE junction) to rule out Escobar's. There are cahnges in the esophagus consitent w/ Escobar's. All specimens are retrieved and no bleeding was noted. The Z line was irregular. The GE junction was at 38 cm. The scope was removed and the patient was woken up and taken back to [facility] in stable condition.
--- NOTE | 2024-03-12 08:29 | W.PM.PROGNOT ---
Date of Service Date of service: 03/12/24 Time of Service: 16:26 Assessment and Plan Assessment and plan (1) ETOH abuse: Status: Chronic (2) Acute GI bleeding: Status: Acute Assessment and plan: The patient is doing well post-op. They are not having any pain they are having no nausea or vomiting. He is tolerated a regular diet. The pt is not having any chest pain or SOB, productive cough; no calf pain or swelling. The pt is making good urine. The pt pain is adequately controlled. The case was discussed with nursing and patient?s progress reviewed. All of the pt's home medications were addressed and adjusted accordingly for their oral intact status. HEENT: no jaundice. no eye pain/drainage/redness/swelling. Mild sore throat Cardio- NSR no chest pain, BP stable. Pulm: no sob or productive cough. no hemoptysis I discussed with the patient and/or there family about the findings in surgery and the pt's progress. Continue with lifestyle modifications: no alcohol, tobacco products, Aspirin or NSAID's (ibuprofen, Motrin, Naprosyn, aleve, etc), soda pop/any carbonated beverages, caffeine (including tea & chocolate), and acidic foods, (tomatoes, citrus, onions, peppermints) spicy or fried/fatty foods. Do not lie down for 30 minutes after eating, and do not eat 2 hours prior to bedtime. Avoid wearing tight fitting clothing/ belts Rx- protonix/carafate Okay to return to work . Follow-up in the clinic in 2 weeks time. Labs prior to clinic appointment (3) Chronic GERD: Status: Acute (4) Acute gastritis: Status: Acute (5) Erosive esophagitis: Status: Acute Objective Last Vital Signs Temp 36.2 C L 03/12/24 08:01 Pulse 94 H 03/12/24 08:01 Resp 18 03/12/24 08:01 BP 111/86 03/12/24 08:01 Pulse Ox 98 03/12/24 08:01 Laboratory Results - last 24 hr 03/11/24 03/11/24 03/12/24 20:28 22:15 02:00 WBC 8.26 7.48 7.21 RBC 4.75 4.27 L 4.26 L Hgb 15.8 14.2 14.3 Hct 46.4 41.8 41.5 MCV 98 H 98 H 97 H MCH 33.3 H 33.3 H 33.6 H MCHC 34.1 34.0 34.5 RDW 11.2 L 11.4 L 11.4 L Plt Count 290 245 258 MPV 8.7 8.5 8.6 Immature Gran % 0.4 0.4 0.1 Neutrophils % 64.6 65.9 64.9 Lymphocytes % 23.7 22.6 25.2 Monocytes % 9.9 9.8 8.7 Eosinophils % 0.8 0.8 0.7 Basophils % 0.6 0.5 0.4 Nucleated RBC % 0.0 0.0 0.0 Absolute Neutrophils 5.33 4.93 4.67 Absolute Lymphocytes 1.96 1.69 1.82 Absolute Monocytes 0.82 H 0.73 0.63 Absolute Eosinophils 0.07 0.06 0.05 Absolute Basophils 0.05 0.04 0.03 PT 9.9 INR 1.0 Sodium 140 Potassium 3.9 Chloride 102 Carbon Dioxide 28.4 Anion Gap 9.6 BUN 28 H Creatinine 0.8 Est GFR (CKD-EPI 2020) 116.90 Glucose 89 Calcium 8.8 Magnesium 1.8 Total Bilirubin 0.83 AST 58 H ALT 60 Alkaline Phosphatase 88 Total Protein 7.5 Albumin 4.0 Lipase 52 ABO/Rh A Positive Blood Type Recheck A Positive Antibody Screen NEGATIVE 03/12/24 06:17 WBC 5.28 RBC 4.22 L Hgb 14.0 Hct 41.3 MCV 98 H MCH 33.2 H MCHC 33.9 RDW 11.4 L Plt Count 254 MPV 8.6 Immature Gran % Neutrophils % Lymphocytes % Monocytes % Eosinophils % Basophils % Nucleated RBC % Absolute Neutrophils Absolute Lymphocytes Absolute Monocytes Absolute Eosinophils Absolute Basophils PT INR Sodium Potassium Chloride Carbon Dioxide Anion Gap BUN Creatinine Est GFR (CKD-EPI 2020) Glucose Calcium Magnesium Total Bilirubin AST ALT Alkaline Phosphatase Total Protein Albumin Lipase ABO/Rh Blood Type Recheck Antibody Screen PAWSS Have you Been Recently Intoxicated or Drunk Within the Last 30 days?: Yes Have you Ever Experienced Previous Episodes of Alcohol Withdrawal?: No Have you ever Experienced Withdrawal Seizures?: No Have you ever Experienced Delirium Tremens(DT)s?: No Have you ever undergone Alcohol Rehabilitation Treatment (i.e, inpt ot outpatient treatment programs)?: No Have you ever Experienced Blackouts?: No Have you ever Combined Alcohol with other Downers within the last 90 days?: No Have you ever Combined Alcohol with any other Substance of Abuse during the last 90 days?: No Positive Blood Alcohol level on Presentation? [PCS.BAL]: No Evidence of Increased Autonomic Activity (i.e. HR>120, tremor, sweating, agitation, nausea)?: No Result: 1 Time Spent with Patient Time Spent with Patient: 25-34 minutes Time was spent: preparing to see the patient(eg.review tests), obtaining and/or reviewing separately otained hiistory, ordering medications,tests, procedures, referring, communicating with other health overnight caregiver, indepentently interpreting results, counseling the patient, care coordination and other
--- NOTE | 2024-03-12 08:41 | INITIAL_ITS ---
Date of service: 03/12/24 Time of Service: 08:41 Care Management Initial Assmt Initial Assessment Reason for Hospitalization: GI Bleed Functional Status/Living Situation Patient Presentation: Manuel was sitting up in bed when CM met with him. He was pleasant in manner and engaged well with CM. Jermaine was admitted with a GI Bleed. He went to the OR today for an endoscopy which showed gastritis and some esophagitis. Jermaine reportedly has an AUD which has likely contributed. Jermaine lives alone in an apartment in [place]. He has a biological brother and sister as well as a step brother and step sister. He is independent at baseline and does not receive and community services. Unfortunately Jermaine does not have healthcare insurance. 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 CM made a referral to Community but Jermaine does not qualify for Medicaid or any other insurance at this time as open enrollment has closed. CM provided him with a Patient Financial Assistanmce packet. [facility] Res[facility]: [facility] Resides with: Alone Significant Other/Family: Local Employment Status: Employed Instrumental Activities of Daily Living (ADLs): Independent Medications Medication Management: No Issues/Barriers identified Advance Directives Advance Directives: Do you have an Advance Directive: N 03/11/24 20:14 AD On File at [facility]: N 03/11/24 20:14 Date Asked 03/11/24 03/11/24 20:22 AD Date Reviewed COLST On File at [facility] COLST Date Scanned Code Status Resuscitation Status Full Code Portal Pt does not currently have a portal and education provided: Yes Insurance Coverage/Financial Issues Insurance: self pay Care Team Visit Care Team Role Provider Type None None Primary Care Provider NON-[facility] STAFF PHYSICIAN MELVA Geller Emergency Provider [employer] Monique Sarkar, DO Admit Provider OSTEOPATHIC DOCTOR Attending Provider Discharge Potential Discharge Needs: PCP F/U Appt Anticipated Barriers to Discharge: None Identified Patient/Family Education Needs: Review discharge instructions, discuss Ask Me Three Transportation: Private vehicle Plan: Anticipate Jermaine will be discharged home with no new services when medically stable. He will follow up with his PCP and plan of care and transport with family. CM will follow and continue to assess for discharge needs. Social Determinants of Health Screening Social Determinants of Health last assessed: 03/12/24 Will the Patient Participate in the Screening?: Yes Do you worry about having a steady place to live?: no Problems where you live: no known problems In the past 12 months, have you had to go without electric, gas, oil or water in your home?: no Have you or anyone in your house had to go without enough food to eat?: no Has lack of transportation kept you from medical appointments or from doing things needed for daily living?: no Has anyone in your life made you feel unsafe or unsupported?: no How hard is it for you to pay for the very basics like food, housing, medical care, and heating? Would you say it is:: Not hard at all Do you want help finding or keeping work or a job?: I do not need or want help If for any reason you need help with day-to-day activities such as bathing, preparing meals, shopping, managing finances, etc., do you get the help you need?: I don?t need any help How often do you feel lonely or isolated from those around you?: Never Do you speak a language other than Peruvian at home?: Yes Does the patient want assistance with any of the above?: No Health Related Social Needs Health related social needs: education (Z55.6) PFSH All Active Problems (Updated 03/12/24 @ 08:30 by Monique Sarkar DO) Erosive esophagitis (Acute) Acute gastritis (Acute) Chronic GERD (Acute) ETOH abuse (Chronic) Acute GI bleeding (Acute) Social History Smoking/Tobacco Use Status: Current every day Smoking risk assessment performed?: Yes Alcohol Intake: current Alcohol Intake frequency: 3 or more drinks per day Alcohol type: beer and hard liquor Drug use: Never Substance use type: does not use Housing: apartment Do you feel safe at home: Yes Do you feel safe in your relationship?: Yes
--- NOTE | 2024-03-12 09:07 | W.ANESPOSTOP ---
Postoperative Evaluation Date, Time and Location Date Performed: 03/12/24 Time Performed: 08:44 Patient Location: PACU Vital Signs Most Recent Imported Vital Signs: Most Recent Vital Signs Temp Pulse Resp BP Pulse Ox 36.6 C 75 22 120/68 97 03/12/24 08:46 03/12/24 08:46 03/12/24 08:46 03/12/24 08:46 03/12/24 08:46 Pain Score Most Recent Pain Score: Most Recent Pain Score Pain Level 0 03/12/24 08:46 Assessment Mental Status: Awake (Alert & Oriented to Patient Baseline) Airway and Respiratory Function: Patent airway with normal (patient baseline) respiratory exam Cardiovascular Function: Hemodynamically Stable Hydration Status: Adequately Hydrated Nausea & Vomiting: No Nausea or Vomiting Pain: Pt. Denies Any Pain Peripheral Nerve Block: Patient did not receive a nerve block
[2024-03-12] MEDS: Sucralfate 1 GM TAB PO ×2 (12:15→16:33)
--- NOTE | 2024-03-12 13:05 | W.PM.DS.N ---
Date of service: 03/12/24 Time of Service: 13:05 DS: Diagnosis Discharge Diagnosis (1) ETOH abuse: Status: Chronic (2) Acute GI bleeding: Status: Acute (3) Chronic GERD: Status: Acute (4) Acute gastritis: Status: Acute (5) Erosive esophagitis: Status: Acute Discharge Plan Disposition Condition: Serious Condition: Improving Discharge Details Reason For Visit: gi bleed Admit Date/Time: 03/11/24 23:45 Admit Provider: Monique Sarkar Attending Provider: Monique Sarkar Primary Care Provider: None,None Home Meds and New Rx's Prescriptions: New sucralfate [Carafate] 1 gram tablet 1 g PO QACHS 84 Days Qty: 336 2RF pantoprazole [Protonix] 40 mg tablet,delayed release (DR/EC) 40 mg PO DAILY Qty: 90 6RF Discharge Instructions Additional Instructions: Post EGD Instruction ?You had anesthesia for your EGD/stomach scope today.? For your safety, please do the following for the next twenty-four (24) hours: Do Not operate a motor vehicle (car, truck, motorcycle, etc.) Do Not drink alcoholic beverages or use any recreational drugs for the first 24 hours or while taking pain medications. The medications in your body may have a reaction that can be dangerous. Do Not make any important decisions or sign any important papers You have just had a gastroscopy (EGD) or upper GI tract examination. It is important for your smooth recovery that you carefully follow the recommendations below. Do not hesitate to call if any questions should arise about your anesthesia, condition, or care. -Symptoms you may experience during the next 24 hours: ?1. Mild abdominal pain or excessive gas or a bloated feeling which improves with rest, liquids, eating? slightly, and walking as tolerated. 2. Drowsiness and/or forgetfulness because of the medications you were given. 3. A sore throat which you can treat with throat lozenges or by gargling with salt water 4-5 times a day. 4. Redness at the site of your IV which you can treat with warm compresses. SPECIAL INSTRUCTIONS: 1. You may resume your previous diet in one hour. We recommend a light meal to start, then progress as tolerated. 2. Restart regular medications in one hour. 3. No aspirin or non-steroidal 4. No lifting over 20 pounds or strenuous activity for the first 24 hours after your procedure. After 24 hours there are no restrictions on your activity, but you may feel fatigued for a few days. -Findings: gastritis (pre-ulcer condition of stomach. moderate esophagitis) -Medications: Carafate 4 times a day for 3 months. Protonix once a day lifelong -Continue to follow lifestyle modifications: No alcohol, tobacco products, Aspirin or NSAID's (ibuprofen, Motrin, Naprosyn, aleve, etc).? Try to limit/avoid:? soda pop/any carbonated beverages, caffeine (including tea & chocolate), and acidic foods, (tomatoes, citrus, onions, peppermints) spicy or fried/fatty foods. Do not lie down for 30 minutes after eating, and do not eat 2 hours prior to bedtime. Avoid wearing tight fitting clothing/ belts. -Stop drinking alcohol Follow up: -My office will send a letter with the results of your biopsy?s in 2-3wks time. Call the office at [phone] (Office) or [phone] (Hospital), or go to the ER right away if you notice any of the followin. Vomiting blood and /or ?coffee ground? material. ?2. Worsening of abdominal pain or cramping. ?3. Trouble with breathing, cough, and/or fever (temperature above 101.5 F). 4. Increasing pain with swallowing. ?5. Chest pain. 6. Any new symptoms. 7. Worsening of the redness at the IV site Activity:: Activity as Tolerated Activity:: Activity as Tolerated Equipment/Supplies:: No Equipment Needed Diet:: bland DS: Summary Time Spent with Patient providing and/or coordinating discharge services: Less than 30 minutes Status at Discharge Functional status at discharge: independent ambulation Overall status at discharge: patient is progressing back to baseline Mental Status: mental status grossly normal Speech and Movement: speech and movement normal Mood: congruent mood Affect: normal affect Quality:SDOH Health Related Social Needs: Health related social needs education (Z55.6) Exam Psych Mental Status: mental status grossly normal Speech and Movement: speech and movement normal Mood: congruent mood Affect: normal affect DS: Data Vitals/I&O Vitals and I&O: Vital Signs Temperature 36.8 C 03/12/24 12:06 Temperature Source Temporal Artery Scan 03/12/24 12:06 Pulse 87 03/12/24 12:06 Pulse 101 H 03/12/24 08:46 Respiratory Rate 20 03/12/24 12:06 Respiratory Effort Normal 03/12/24 00:46 Respiratory Depth Normal 03/12/24 00:46 Respiratory Pattern Normal 03/12/24 00:46 Blood Pressure 123/70 03/12/24 12:06 Blood Pressure Mean 78 03/12/24 08:46 Blood Pressure Position Sitting 03/11/24 20:15 Pulse Oximetry 100 03/12/24 12:06 Respiratory End-tidal CO2 39 03/12/24 08:36 Oxygen Delivery Method Room Air 03/12/24 12:06 Oxygen Flow Rate 0 03/12/24 12:06 Pain Level 0 03/12/24 08:46 Intake & Output 03/11/24 03/12/24 03/12/24 23:59 11:59 23:59 Intake Total 357.5 / 646.833 289.333 / 646.833 Output Total 200 / 200 300 / 300 Balance -180 / -180 57.5 / 346.833 289.333 / 346.833 Weight 77.111 kg 75.568 kg Intake: IV 357.5 / 646.833 289.333 / 646.833 Output: Urine 300 / 300 Stool 200 / 200 Other: Urine Color Straw Urine Appearance Clear Urine Odor Normal Comment per pt voided x1 Emesis Description Bright Red Blood None # Voids 1 # Bowel Movements 1 Data Completed and Pending Labs on day of discharge: Labs from last 24 hours 03/12/24 03/12/24 03/11/24 06:17 02:00 22:15 WBC 5.28 7.21 7.48 RBC 4.22 L 4.26 L 4.27 L Hgb 14.0 14.3 14.2 Hct 41.3 41.5 41.8 MCV 98 H 97 H 98 H MCH 33.2 H 33.6 H 33.3 H MCHC 33.9 34.5 34.0 RDW 11.4 L 11.4 L 11.4 L Plt Count 254 258 245 MPV 8.6 8.6 8.5 Immature Gran % 0.1 0.4 Neutrophils % 64.9 65.9 Lymphocytes % 25.2 22.6 Monocytes % 8.7 9.8 Eosinophils % 0.7 0.8 Basophils % 0.4 0.5 Nucleated RBC % 0.0 0.0 Absolute Neutrophils 4.67 4.93 Absolute Lymphocytes 1.82 1.69 Absolute Monocytes 0.63 0.73 Absolute Eosinophils 0.05 0.06 Absolute Basophils 0.03 0.04 PT 9.9 INR 1.0 Sodium Potassium Chloride Carbon Dioxide Anion Gap BUN Creatinine Est GFR (CKD-EPI 2020) Glucose Calcium Magnesium Total Bilirubin AST ALT Alkaline Phosphatase Total Protein Albumin Lipase ABO/Rh Blood Type Recheck A Positive Antibody Screen 03/11/24 20:28 WBC 8.26 RBC 4.75 Hgb 15.8 Hct 46.4 MCV 98 H MCH 33.3 H MCHC 34.1 RDW 11.2 L Plt Count 290 MPV 8.7 Immature Gran % 0.4 Neutrophils % 64.6 Lymphocytes % 23.7 Monocytes % 9.9 Eosinophils % 0.8 Basophils % 0.6 Nucleated RBC % 0.0 Absolute Neutrophils 5.33 Absolute Lymphocytes 1.96 Absolute Monocytes 0.82 H Absolute Eosinophils 0.07 Absolute Basophils 0.05 PT INR Sodium 140 Potassium 3.9 Chloride 102 Carbon Dioxide 28.4 Anion Gap 9.6 BUN 28 H Creatinine 0.8 Est GFR (CKD-EPI 2020) 116.90 Glucose 89 Calcium 8.8 Magnesium 1.8 Total Bilirubin 0.83 AST 58 H ALT 60 Alkaline Phosphatase 88 Total Protein 7.5 Albumin 4.0 Lipase 52 ABO/Rh A Positive Blood Type Recheck Antibody Screen NEGATIVE PFSH All Active Problems (Updated 03/12/24 @ 08:30 by Monique Sarkar DO) Erosive esophagitis (Acute) Acute gastritis (Acute) Chronic GERD (Acute) ETOH abuse (Chronic) Acute GI bleeding (Acute) Social History Smoking/Tobacco Use Status: Current every day Smoking risk assessment performed?: Yes Alcohol Intake: current Alcohol Intake frequency: 3 or more drinks per day Alcohol type: beer and hard liquor Drug use: Never Substance use type: does not use Housing: apartment Do you feel safe at home: Yes Do you feel safe in your relationship?: Yes Time Spent with Patient Time Spent with Patient: <45 minutes Time was spent: preparing to see the patient(eg.review tests), obtaining and/or reviewing separately otained hiistory, ordering medications,tests, procedures, referring, communicating with other health healthcare risk control consultant, indepentently interpreting results, counseling the patient, care coordination and other
--- NOTE | 2024-03-12 16:52 | PDOC.CMIN ---
Care Management Initial Assmt Advance Directives Advance Directives: Do you have an Advance Directive: N 03/11/24 20:14 AD On File at [facility]: N 03/11/24 20:14 Date Asked 03/11/24 03/11/24 20:22 AD Date Reviewed COLST On File at [facility] COLST Date Scanned Code Status Resuscitation Status Full Code Care Team Visit Care Team Role Provider Type None None Primary Care Provider NON-[facility] STAFF PHYSICIAN MELVA Geller Emergency Provider [facility] Monique Sarkar DO Admit Provider OSTEOPATHIC DOCTOR Attending Provider Social Determinants of Health Screening Social Determinants of Health last assessed: 03/12/24 Will the Patient Participate in the Screening?: Yes Do you worry about having a steady place to live?: no Problems where you live: no known problems In the past 12 months, have you had to go without electric, gas, oil or water in your home?: no Have you or anyone in your house had to go without enough food to eat?: no Has lack of transportation kept you from medical appointments or from doing things needed for daily living?: no Has anyone in your life made you feel unsafe or unsupported?: no How hard is it for you to pay for the very basics like food, housing, medical care, and heating? Would you say it is:: Not hard at all Do you want help finding or keeping work or a job?: I do not need or want help If for any reason you need help with day-to-day activities such as bathing, preparing meals, shopping, managing finances, etc., do you get the help you need?: I don?t need any help How often do you feel lonely or isolated from those around you?: Never Do you speak a language other than Syriac at home?: Yes Does the patient want assistance with any of the above?: No Health Related Social Needs Health related social needs: education (Z55.6) PFSH All Active Problems (Updated 03/12/24 @ 08:30 by Monique Sarkar DO) Erosive esophagitis (Acute) Acute gastritis (Acute) Chronic GERD (Acute) ETOH abuse (Chronic) Acute GI bleeding (Acute) Social History Smoking/Tobacco Use Status: Current every day Smoking risk assessment performed?: Yes Alcohol Intake: current Alcohol Intake frequency: 3 or more drinks per day Alcohol type: beer and hard liquor Drug use: Never Substance use type: does not use Housing: apartment Do you feel safe at home: Yes Do you feel safe in your relationship?: Yes
== END 2024-03-12 17:10 | disposition home or self-care (01) ==
LOC: ER 03-12 00:28 → MS 03-12 00:41
PROVIDERS: Admitting Provider Surgery; Emergency Provider Physician Assistant; Visit Provider Surgery
PROC: 0DJ68ZZ Inspection of Stomach, Via Natural or Artificial Opening Endoscopic (ICD-10-PCS; CPT 43235; principal; 2024-03-12 08:00)
DX: K29.01 Acute gastritis with bleeding (principal); K22.11 Ulcer of esophagus with bleeding; F10.10 Alcohol abuse, uncomplicated; F17.210 Nicotine dependence, cigarettes, uncomplicated; K21.9 Gastro-esophageal reflux disease without esophagitis; K31.9 Disease of stomach and duodenum, unspecified; K22.89 Other specified disease of esophagus
CPT/HCPCS: 43239; 36415; 80053; 83690; 85027; 86850; 86900; 86901; 88305; 96365; 96375; 99285; 74174; 83735; 85025; 85610; 88312; G0378; J2250; J2405; J2470; J2704; J3490

== ENCOUNTER 2024-03-28 01:47 | Outpatient (CLI) | payer SELFPAY ==
[2024-03-28 12:40] LABS: HCT 41.4 % (40.0-50.0); HGB 13.6 g/dL (13.5-17.5); MCH 32.6 pg (27.0-33.0); MCHC 32.9 % (32.0-36.0); MCV 99 fL (80-95); MPV 8.6 fL (8.0-11.0); Platelet Count 323 10^3/uL (130-400); RBC 4.17 10^6/uL (4.36-5.78); RDW 11.7 % (11.8-14.1); RDW-SD 42.9 fL; WBC 6.16 10^3/uL (4.4-10.8)
[2024-03-28 12:51] LABS: GGT 50 U/L (15-85)
[2024-03-28 13:14] LABS: Ferritin 57 ng/mL (26-388)
== END 2024-03-28 01:48 | disposition home or self-care (01) ==
LOC: LBO 01:47
PROVIDERS: Visit Provider Surgery
DX: F10.10 Alcohol abuse, uncomplicated (principal); K21.9 Gastro-esophageal reflux disease without esophagitis; K29.00 Acute gastritis without bleeding; K22.10 Ulcer of esophagus without bleeding; K92.2 Gastrointestinal hemorrhage, unspecified
CPT/HCPCS: 36415; 85027; 82728; 82977